=== PATIENT | male | born 1995 | race Caucasian/White ===

== ENCOUNTER 2021-04-18 15:41 | Emergency (ER) | payer OTHER ==
[2021-04-18 16:44] LABS: BASOPHIL 0.6 % (0-2); EOSINOPHIL 0.6 % (0-5); HCT 41.8 % (42.0-52.0); HGB 14.9 g/dl (13.2-18.0); LYMPHOCYTE 15.9 % (15-48); MCH 31.8 pg (25.0-31.0); MCHC 35.6 g/dL (32.0-36.0); MCV 89.1 fL (78.0-100.0); MONOCYTE 6.4 % (0-12); MPV 9.3 fL (6.0-9.5); NEUTROPHIL 75.9 % (41-80); NRBC 0; PLT 311 K/uL (150-400); RBC 4.69 M/uL (4.70-6.00); RDW 12.2 % (11.5-14.0); WBC 10.9 K/uL (4.0-10.5)
[2021-04-18 16:55] LABS: BUN/CREAT RATIO (CALC) 11.4 RATIO; CREATININE 0.79 mg/dL (0.67-1.17); POTASSIUM 3.8 mmol/L (3.5-5.1)
== END 2021-04-18 19:03 | disposition home or self-care (01) ==
LOC: FER 15:41
PROVIDERS: Emergency Medicine
DX: S70.11XA Contusion of right thigh, initial encounter (principal); F17.290 Nicotine dependence, other tobacco product, uncomplicated; Z91.040 Latex allergy status; W11.XXXA Fall on and from ladder, initial encounter; Y92.89 Other specified places as the place of occurrence of the external cause; Y99.0 Civilian activity done for income or pay
CPT/HCPCS: 36415; 73502; 73552; 80048; 85025; J1885; J2270; J2405